=== PATIENT | female | born 2000 | race Caucasian/White ===

== ENCOUNTER 2023-07-25 09:59 | Outpatient (RCR) | payer BC, SELFPAY ==
[2023-07-18 09:58] LABS: Albumin* 4.8 g/dL (3.3-5.0)
[2023-07-18 10:01] LABS: Alanine Aminotransferase* 15 U/L (4-35); Alkaline Phosphatase* 48 U/L (40-150); Aspartate Amino Transferase* 29 U/L (12-35); Bilirubin Direct* 0.1 mg/dL (0.0-0.5); Bilirubin Total* 0.6 mg/dL (0.1-1.5); Total Protein* 7.5 g/dL (6.0-8.3)
[2023-07-18 10:11] LABS: C Reactive Protein* < 0.5 mg/dL (0.5-1.0)
[2023-07-18 10:18] LABS: Vitamin D 25 Hydroxy* 33 ng/mL (30-80)
[2023-07-18 10:55] LABS: Ferritin* 18.8 ng/mL (6.24-137.0)
[2023-07-28 01:42] LABS: Calprotectin, Fecal 42 ug/g (<=49)
== END 2024-07-09 14:36 | disposition home or self-care (01) ==
LOC: LAB 09:59
PROVIDERS: PCP Family Medicine
DX: K51.90 Ulcerative colitis, unspecified, without complications (principal)
CPT/HCPCS: 80053; 80061; 80076; 82306; 82728; 83993; 84443; 86140